=== PATIENT | male | born 1990 ===

== ENCOUNTER 2017-06-02 01:43 | Emergency (ER) | payer OTHER ==
[2017-06-02 01:55] VITALS: BP 140/61; PULSE 63; RESP 18; TEMP 97.3; O2SAT 99
--- NOTE | 2017-06-02 02:10 | ED PDOC ---
HPI: Back Time Seen by Provider: 06/02/17 01:53 Chief Complaint (Nursing): Back Pain Chief Complaint (Provider): back pain History Per: Patient History/Exam Limitations: no limitations Onset/Duration Of Symptoms: Hrs Current Symptoms Are (Timing): Still Present Exacerbating Factor(s): Turning, Movement, Sitting Additional History Per: Patient Additional Complaint(s): 26 y/o male presents with low back pain/right leg pain x 3 hours. Patient states he was doing heavy lifting at the gym tonight and thinks he may have pulled a muscle as pain began shortly after. Pain radiates down right leg, worse when standing and laying flat. Denies fever, nausea/vomiting, numbness/ weakness of extremities, bowel/bladder incontinence. Past Medical History Reviewed: Historical Data, Nursing Documentation, Vital Signs Vital Signs: Last Vital Signs Temp 97.3 F L 06/02/17 01:51 Pulse 63 06/02/17 01:51 Resp 18 06/02/17 01:51 BP 140/61 06/02/17 01:51 Pulse Ox 99 06/02/17 01:51 - Medical History PMH: No Chronic Diseases - Surgical History Surgical History: Appendectomy, Hernia Repair - Family History Family History: States: No Known Family Hx - Home Medications Home Medications: Ambulatory Orders Medication Instructions Recorded Cyclobenzaprine [Cyclobenzaprine 10 mg PO BID PRN #14 tab 06/02/17 HCl] Naproxen [Naprosyn] 500 mg PO Q12 PRN #20 tablet 06/02/17 traMADol [Ultram] 50 mg PO Q8 PRN #10 tab 06/02/17 - Allergies Allergies/Adverse Reactions: Allergies Allergy/AdvReac Type Severity Reaction Status Date / Time No Known Allergies Allergy Verified 06/02/17 01:55 Review of Systems ROS Statement: Except As Marked, All Systems Reviewed And Found Negative Musculoskeletal: Positive for: Back Pain, Leg Pain Physical Exam - Reviewed Nursing Documentation Reviewed: Yes Vital Signs Reviewed: Yes - Physical Exam Appears: Positive for: Well, Non-toxic, Uncomfortable Head Exam: Positive for: ATRAUMATIC, NORMAL INSPECTION, NORMOCEPHALIC Back: Positive for: Muscle Spasm (right lspine paraspinal). Negative for: L CVA Tenderness, R CVA Tenderness, Vertebral Tenderness, Decreased ROM Extremity: Positive for: Normal ROM Neurologic/Psych: Positive for: Alert, Oriented - ECG O2 Sat by Pulse Oximetry: 99 - Other Rad xray lspine X-Ray: Viewed By Me X-Ray Interpretation: no acute findings - Progress ED Course And Treament: xray, Toradol IM, flexeril PO, tramadol PO Patient educated on findings, discharged with rx naproxen, flexeril, tramadol. Advised warm compresses. Follow up PMD 2-3 days. Return precautions given. Disposition - Clinical Impression Clinical Impression: Low back strain - Patient ED Disposition Is Patient to be Admitted: No - Disposition Referrals: Carlos Vidal, MELINA, [employer] [Primary Care Provider] - Disposition Time: 03:40 Condition: IMPROVED Prescriptions: Cyclobenzaprine [Cyclobenzaprine HCl] 10 mg PO BID PRN #14 tab PRN Reason: Muscle Spasm Naproxen [Naprosyn] 500 mg PO Q12 PRN #20 tablet PRN Reason: Pain, Moderate (4-7) traMADol [Ultram] 50 mg PO Q8 PRN #10 tab PRN Reason: Pain, Severe (8-10) Instructions: Acute Low Back Pain (ED), Lumbar Radiculopathy (ED) Forms: [employer] (E[place]ian), [facility] ED School/Work Excuse
[2017-06-02] MEDS: Oxycodone/Acetaminophen 5/325 mg Tab PO ONE (03:06)
--- NOTE | 2017-06-02 10:40 | RAD ---
PROCEDURE: Radiographs of the Lumbar Spine. HISTORY: COMPARISON: No prior. FINDINGS: BONES: Normal alignment. No listhesis. No fracture. DISC SPACES: Unremarkable. OTHER FINDINGS: Minimal bilateral sclerotic SI joint arthropathy. Minimal bilateral L4-5 and L5-S1 facet hypertrophy IMPRESSION: No fracture or subluxation. Minimal bilateral sclerotic SI joint arthropathy. Minimal bilateral L4-5 and L5-S1 facet hypertrophy
== END 2017-06-02 03:52 | disposition home or self-care (01) ==
LOC: H.ER 01:43
DX: S39.012A Strain of muscle, fascia and tendon of lower back, initial encounter (principal); X50.9XXA Other and unspecified overexertion or strenuous movements or postures, initial encounter; Y92.89 Other specified places as the place of occurrence of the external cause
CPT/HCPCS: 72100; 96372; 99282; J1885